=== PATIENT | female | born 1995 | race Caucasian/White ===

== ENCOUNTER 2019-04-16 18:05 | Emergency (ER) | payer BC, OTHER ==
[2019-04-16] MEDS ORDERED: Ibuprofen 800 MG TAB ONE (18:16)
--- NOTE | 2019-04-16 18:47 | RAD ---
Right foot 3 views HISTORY: Right foot injury. FINDINGS: Lisfranc joint alignment is anatomic. Plantar arch is maintained. No acute fracture or disl ocation. IMPRESSION: No acute osseous abnormalities are demonstrated.
== END 2019-04-16 19:00 | disposition home or self-care (01) ==
LOC: MADERS 18:05
DX: S93.601A Unspecified sprain of right foot, initial encounter (principal); F32.9 Major depressive disorder, single episode, unspecified; E66.9 Obesity, unspecified; Z79.899 Other long term (current) drug therapy; X50.9XXA Other and unspecified overexertion or strenuous movements or postures, initial encounter

== ENCOUNTER 2020-05-14 18:39 | Emergency (ER) | payer BC, OTHER, SELFPAY ==
[2020-05-14 19:11] LABS: Bilirubin Negative (Negative); Blood, Urine Moderate (Negative); Glucose, Urine (Dipstick) Negative (Negative); Ketone, Urine Negative (Negative); Leukocyte Negative (Negative); Nitrite Negative (Negative); Protein, Urine (Dipstick) Trace mg/dL (Neg-Trace); Urobilinogen 0.2 mg/dL (Less than 2)
[2020-05-14 19:13] LABS: Pregnancy Test - Urine (BHCG) Negative (Negative); Pregu Control Background? CLEAR/WHITE (CLR/WHITE); Pregu Control Bar Appear? YES (CONTROL BAR); Specific Gravity 1.029 (1.002-1.036)
[2020-05-14 19:14] LABS: Clarity Hazy (Clear); Specific Gravity, Urine 1.029 (1.005-1.030)
[2020-05-14 19:19] LABS: WBC/HPF 0-3 HPF (0-3)
[2020-05-14 19:20] LABS: Bacteria/HPF Rare-Few HPF (None Seen); Calcium Oxalate Crystals 2+ HPF (None Seen)
[2020-05-14] MEDS ORDERED: Acetaminophen 500 MG TAB ONE (19:21)
--- NOTE | 2020-05-14 20:21 | CT ---
CT ABDOMEN AND PELVIS WITHOUT IV CONTRAST: 05/14/20 HISTORY: Abdominal pain. COMPARISON: Comparison made to abdominal CT abdomen and pelvis dated 04/02/18. FINDINGS: Lung bases are clear. Liver, spleen, pancreas, unremarkable. Post cholecystectomy change noted. Kidneys again show nonobstructing calculi in the upper collecting structures of both kidneys. There i s no evidence of ureteral calculus or hydronephrosis. Urinary bladder is not well distended and not w ell evaluated. Small bowel loops are normal caliber. Appendix is unremarkable. The colon is unremarkable. Images through the pelvis show unremarkable uterus and adnexa. No free fluid. IMPRESSION: 1. Nonobstructing calculi in the upper collecting structures of both kidneys. 2. No acute process identified. POS: AGW
== END 2020-05-14 20:23 | disposition home or self-care (01) ==
LOC: MADERS 18:39
DX: R10.9 Unspecified abdominal pain (principal); R31.9 Hematuria, unspecified; M54.5 Low back pain; F32.9 Major depressive disorder, single episode, unspecified; Z87.442 Personal history of urinary calculi
CPT/HCPCS: 74176; 81003; 81015; 81025

== ENCOUNTER 2020-10-19 16:15 | Emergency (ER) | payer OTHER, SELFPAY ==
[2020-10-19] MEDS ORDERED: Ondansetron ODT 4 MG TAB ONE (17:09)
[2020-10-19] MEDS ORDERED: Ketorolac Tromethamine 60 MG/2 ML VIAL ONE (17:09)
[2020-10-19 17:10] LABS: Bilirubin Negative (Negative); Blood, Urine Large (Negative); Clarity Cloudy (Clear); Glucose, Urine (Dipstick) Negative (Negative); Ketone, Urine Negative (Negative); Leukocyte Small (Negative); Nitrite Positive (Negative); Protein, Urine (Dipstick) 30 mg/dL (Neg-Trace); Specific Gravity, Urine 1.025 (1.005-1.030); Urobilinogen 0.2 mg/dL (Less than 2); pH, Urine 6.5 (5.0-9.0)
[2020-10-19 17:19] LABS: Bacteria/HPF 1+ HPF (None Seen); RBC/HPF Greater than 50 HPF (0-3); Squamous Epithelial None Seen HPF (0-3); WBC/HPF 21-50 HPF (0-3)
[2020-10-19] MEDS ORDERED: Lidocaine 1% 20 ML MDV ONE (17:32)
[2020-10-19] MEDS ORDERED: cefTRIAXone\\ROCEPHIN 1 GM VIAL ONE (17:32)
[2020-10-19 17:35] LABS: #Basophils 0.1 thou/uL (0.0-0.2); #Lymphocytes 0.9 thou/uL (1.20-3.40); #Monocytes 0.3 thou/uL (0.11-0.59); #Neutrophils 12.9 thou/uL (1.40-6.50); %Basophils 0.5 % (0.0-1.0); %Eosinophils 0.1 % (0.0-10.0); %Lymphocytes 6.2 % (21.0-51.0); %Monocytes 2.1 % (0.0-10.0); %Neutrophils 91.2 % (42.0-75.0); Hemoglobin 14.9 g/dL (12.0-16.0); Mean Corpuscular HGB CONC 32.2 g/dL (32.0-36.0); Mean Corpuscular Hemoglobin 29.7 pg (27.0-31.0); Mean Corpuscular Volume 92.3 fL (78.0-98.0); Mean Platelet Volume 8.7 fL (7.4-10.4); Platelet Count 207 thou/uL (130-400); Red Blood Cell (RBC) Count 5.01 mill/uL (4.20-5.40); White Blood Cell (WBC) Count 14.1 thou/uL (4.8-10.8)
[2020-10-19 17:38] LABS: Pregnancy Test - Urine (BHCG) Negative (Negative); Pregu Control Background? CLEAR/WHITE (CLR/WHITE); Pregu Control Bar Appear? YES (CONTROL BAR); Specific Gravity 1.025 (1.002-1.036)
[2020-10-19 17:51] LABS: ALT (SGPT) 31 U/L (8-55); AST (SGOT) 29 U/L (5-34); Albumin 4.2 g/dL (3.5-5.0); Alkaline Phosphatase 95 U/L (40-110); Anion Gap 16 mmol/L (10-20); BUN (Urea Nitrogen) 12 mg/dL (7.0-18.7); Bilirubin, Total 0.3 mg/dL (0.2-1.2); Calc. Creatinine Clearance 0 mL/min (70-130); Carbon Dioxide 23 mmol/L (22-29); Chloride 106 mmol/L (98-107); Glucose 103 mg/dL (70-105); Potassium 3.6 mmol/L (3.5-5.1); Protein, Total 7.2 g/dL (6.0-8.3); Sodium 141 mmol/L (136-145)
--- NOTE | 2020-10-19 19:32 | CT ---
CT ABDOMEN AND PELVIS WITHOUT CONTRAST; 10/19/20 PROVIDED CLINICAL HISTORY: Right flank pain. FINDINGS: Comparison 05/14/20. The visualized lung bases are free of significant opacity. There is a 6 mm right UVJ region calculus with associated moderate right hydronephrosis and right hyd roureter. Additional calculi are present involving each kidney, largest measuring 6 mm at the left in ferior pole and largest on the right measuring 6 mm at the superior pole. There is no left hydronephr osis. The solid abdominal organs are suboptimally evaluated in the absence of IV contrast material but dem onstrate an otherwise unremarkable unenhanced CT appearance. Changes of prior cholecystectomy are seen. The appendix appears normal. There is no bowel dilatation, inflammatory fat stranding, free fluid or lymph node enlargement apparent. The osseous structures demonstrate no concerning lytic or blastic lesions. IMPRESSION: 1. 6 mm obstructing right UVJ calculus. 2. Bilateral nephrolithiasis. POS: SEFERINO
== END 2020-10-19 19:16 | disposition home or self-care (01) ==
LOC: MADERS 16:15
DX: N20.2 Calculus of kidney with calculus of ureter (principal); Z79.899 Other long term (current) drug therapy
CPT/HCPCS: 36415; 74176; 80053; 81003; 81015; 81025; 85025; 87040; 87077; 87086; 87186; 96372; J0696; J1885; Q0162